=== PATIENT | female | born 1955 | race Caucasian/White ===

== ENCOUNTER 2017-01-21 11:28 | Emergency (ER) | payer OTHER ==
--- NOTE | ~2017-01-21 | EKG ---
PATIENT: ANYI GRACE UNIT #: [id number] Ventricular Rate: 102 BPM Atrial Rate: 102 BPM P-R Interval: 146 ms QRS Duration: 92 ms Q-T Interval: 356 ms QTC Calculation(Bezet): 463 ms P [place]: 55 degrees Calculated R [place]: 15 degrees Calculated T [place]: 47 degrees Diagnosis Line: Sinus tachycardia Diagnosis Line: Nonspecific ST abnormality Diagnosis Line: Otherwise normal ECG Diagnosis Line: No previous ECGs available Diagnosis Line: Confirmed by ZEFERINO GOODWIN MD ([id number]) on 01/27/2017 Diagnosis Line: 11:55:07 AM INTERPRETING MD: CHRISTA ROSALES
--- NOTE | ~2017-01-21 | CR72 ---
[facility] A Service of [facility] RADIOLOGY TEXT RESULTS PATIENT: ANYI GRACE LOCATION: SED : 55 UNIT #: [id number] AGE: [address]: Nate Alvarado DO SEX: F ORDER DR: [id number] [place] [id number] E MR#: [id number] Acc #: [id number] NAME: ANYI GRACE : 1955 SEX: F STUDY DATE/TIME: 01/21/2017 11:37 UNIT: SED ROOM: STUDY DESCRIPTION: CR Chest Single View Portable Attending Physician: Nate Alvarado Ordering Physician: Nate Alvarado Primary Care Physician: Bharati Camacho M.D. MEDICAL IMAGING REPORT This report is preliminary unless electronic signature is present. EXAM Portable chest, 01/21. INDICATION Chest pain that started at 7 o'clock this morning. History of hypertension. FINDINGS A single AP portable view of the chest shows both lungs to be clear. The heart is normal in size. The mediastinal contour is normal. No significant bone abnormalities are seen. IMPRESSION Normal portable chest. Dictated by... Sukhi López Jr., M.D. THIS IS AN ELECTRONICALLY VERIFIED REPORT Sukhi López Jr., M.D. at 01/21/2017 4:47 PM JOHN/chuck TD: 01/21/2017 12:41 JOB #: [id number] MEDICAL IMAGING REPORT Page 1 of 1
[~2017-01-21 11:28] MED LIST: CALCIUM 500 + D1 TAB PO; EQUATE ARTHRITIS PO; FISH OIL 1,0001 CAP PO; FLEXERIL PO; MEDROL PO; NO MEDICATIONS; VICODIN 5/500 T1 TAB PO
[2017-01-21 11:45] LABS: BASOPHIL% 0.5 % (0-2.5); EOSINOPHIL# 0.1 X10e3 (0-0.7); EOSINOPHIL% 2.2 % (0.0-7.0); HEMATOCRIT 40.5 % (35.0-45.0); HEMOGLOBIN 14.1 gm/dL (12.0-16.0); LYMPHOCYTE# 1.8 X10e3 (1.0-3.5); LYMPHOCYTE% 31.1 % (17.0-45.0); MEAN CELL VOLUME 87.1 FL (83-96); MEAN CORPUSCULAR HEMOGLOBIN 30.3 PG (28-34); MEAN CORPUSCULAR HGB CONC 34.8 g/dL (30-36); MEAN PLATELET VOLUME 6.8 FL (6.5-11.5); MONOCYTE# 0.4 X10e3 (0-1.0); NEUTROPHIL# 3.3 X10e3 (1.5-7.1); NEUTROPHIL% 58.2 % (40-75); PLATELET COUNT 319 X10e3 (140-420); RED BLOOD COUNT 4.65 X10e (3.90-5.30); RED CELL DISTRIBUTION WIDTH 12.9 % (11.0-15.5); WHITE BLOOD COUNT 5.6 X10e3 (4.0-10.5)
[2017-01-21 11:48] LABS: DIFF IND NO
[2017-01-21 12:03] LABS: PROTHROMBIN TIME (PATIENT) 11.2 SECONDS (9.5-12.4)
[2017-01-21 12:04] LABS: POC - CKMB <1.0 ng/mL (0.0-7.9); POC - TROPONIN <0.05 ng/mL (<=0.05)
[2017-01-21 12:09] LABS: ALBUMIN SERUM 4.5 g/dL (3.5-5.0); ALKALINE PHOSPHATASE 51 U/L (32-92); ALT (SGPT) 29 U/L (10-40); AST (SGOT) 23 U/L (10-42); BILIRUBIN,TOTAL 0.4 mg/dL (0.2-2.0); BLOOD UREA NITROGEN 20 mg/dL (9-23); BUN/CREATININE RATIO 22.22; CALCIUM SERUM 9.5 mg/dL (8.4-10.2); CARBON DIOXIDE 29 mmol/L (22-31); CHLORIDE 103 mmol/L (100-111); CREATININE SERUM 0.9 mg/dL (0.6-1.4); GLOM FILT RATE Estimated 69.1 mL/min (>60); GLUCOSE FASTING 104 mg/dL (70-110); POTASSIUM 3.6 mmol/L (3.5-5.1); PROTEIN TOTAL SERUM 7.4 g/dL (6.0-8.3); SODIUM 140 mmol/L (135-145)
[2017-01-21 12:11] LABS: PARTIAL THROMBOPLASTIN TIME 31.8 SECONDS (25.6-38.1)
[2017-01-21 12:14] LABS: BILIRUBIN, DIRECT <0.1 mg/dL (0.0-0.2); BILIRUBIN,INDIRECT 0.3 mg/dL (0.0-0.9)
[2017-01-21 13:48] LABS: POC - TROPONIN <0.05 ng/mL (<=0.05)
== END 2017-01-21 14:20 | disposition home or self-care (01) ==
LOC: SED 11:28
PROVIDERS: Emergency Medicine
DX: R07.89 Other chest pain (principal); I10 Essential (primary) hypertension; Z90.710 Acquired absence of both cervix and uterus; Z90.49 Acquired absence of other specified parts of digestive tract
CPT/HCPCS: 36415; 71010; 80048; 80076; 82553; 84484; 85025; 85379; 85610; 85730; 93005; 96372; 99284

== ENCOUNTER → 2017-03-25 | Outpatient (CLI) | payer OTHER ==
--- NOTE | ~2017-03-25 | MY29 ---
[facility] A Service of [facility] RADIOLOGY TEXT RESULTS PATIENT: ANYI GRACE LOCATION: [facility] : 55 UNIT #: [id number] AGE: [address]: Selena Lira APRN SEX: F ORDER DR: [id number] [facility] [address] [place], [place] [address] [id number] O MR#: [id number] Acc #: [id number] NAME: ANYI GRACE : 1955 SEX: F STUDY DATE/TIME: 03/25/2017 16:38 UNIT: [facility] ROOM: STUDY DESCRIPTION: [facility] SCREENING W/ CAD BILAT Attending Physician: Selena Lira A.P.R.N. Referring Physician: Selena Lira A.P.R.N. Ordering Physician: Selena Lira A.P.R.N. Primary Care Physician: Selena Lira A.P.R.N. MEDICAL IMAGING REPORT This report is preliminary unless electronic signature is present EXAM Digital screening mammogram, 03/25/2017, [facility]. HISTORY 61-year-old woman; no risk elevation. Annual screening. COMPARISON None available. Stated prior mammograms cannot be located. FINDINGS Digital imaging of each breast was completed, utilizing screening protocol. Review includes FDA-approved CAD device. Breast parenchyma is partially fatty replaced in each breast, although residual parenchymal opacities remain in the left breast, subareolar location, and upper outer quadrant. There is mild subareolar duct prominence on the left, and the nipple appears to be inverted or retracted. On the craniocaudal view, there is suggestion of subtle stellate distortion, deep central aspect. This is less apparent on an exaggerated craniocaudal view and is not identified on the MLO view. However, in the absence of a prior images, additional left breast imaging is indicated. This would include a true lateral projection with high-resolution spot compression views and a targeted ultrasound, if indicated at the time. Right breast is negative. IMPRESSION Incomplete mammographic evaluation. Additional left breast imaging is recommended. See complete report with recommendations. Patients over the age of 40 are entered into a reminder system with target due date for the next mammogram. A result letter will also be sent to the patient. [facility] A Service of [facility] RADIOLOGY TEXT RESULTS PATIENT: ANYI GRACE LOCATION: [facility] : 55 UNIT #: [id number] AGE: [address]: Selena Lira APRN SEX: F ORDER DR: BIRADS: 0 Incomplete; need additional imaging evaluation and/or prior mammograms for comparison. Dictated by... Amos Servin M.D. THIS IS AN ELECTRONICALLY VERIFIED REPORT Amos Servin M.D. at 03/29/2017 3:31 PM Luli TD: 03/29/2017 14:48 JOB #: [id number] MEDICAL IMAGING REPORT Page 1 of 1 COPY
== END | disposition home or self-care (01) ==
LOC: CWCC 16:26
DX: Z12.31 Encounter for screening mammogram for malignant neoplasm of breast (principal); R92.8 Other abnormal and inconclusive findings on diagnostic imaging of breast
CPT/HCPCS: G0202

== ENCOUNTER → 2017-04-15 | Outpatient (CLI) | payer OTHER ==
--- NOTE | ~2017-04-15 | MY24 ---
[facility] A Service of [facility] & [facility] RADIOLOGY TEXT RESULTS PATIENT: ANYI GRACE LOCATION: [facility] : 55 UNIT #: [id number] AGE: [address]: Selena Lira APRN SEX: F ORDER DR: [id number] [facility] [address] [place], [place] [address] [id number] O MR#: [id number] Acc #: [id number] NAME: ANYI GRACE : 1955 SEX: F STUDY DATE/TIME: 04/15/2017 14:59 UNIT: [facility] ROOM: STUDY DESCRIPTION: [facility] Attending Physician: Selena Lira A.P.R.N. Referring Physician: Selena Lira A.P.R.N. Ordering Physician: Selena Lira A.P.R.N. Primary Care Physician: Selena Lira A.P.R.N. MEDICAL IMAGING REPORT This report is preliminary unless electronic signature is present EXAM Unilateral left digital diagnostic mammogram with CAD device, 04/15/2017. HISTORY Screening mammogram obtained 03/25/2017 demonstrated architectural distortion in the central left breast seen only in the craniocaudal projection. Spot compression was recommended for further evaluation. FINDINGS Digital mediolateral view of the left breast was obtained as well as spot compression of the central left breast in the craniocaudal projection demonstrating effacement of the density characteristic of normal overlapping fibroglandular tissue. No underlying mass or suspicious cluster of microcalcifications was seen. The films have been reviewed by an FDA-approved CAD device. IMPRESSION No mammographic evidence of malignancy. Annual mammogram is recommended. Patients over the age of 40 are entered into a reminder system with target due date for the next mammogram. A result letter will also be sent to the patient. BIRADS: 1 Negative. Dictated by... Amadeo Kennedy M.D. THIS IS AN ELECTRONICALLY VERIFIED REPORT Amadeo Kennedy M.D. at 04/15/2017 5:48 PM KRT/jt [facility] A Service of [facility] RADIOLOGY TEXT RESULTS PATIENT: ANYI GRACE LOCATION: [facility] : 55 UNIT #: [id number] AGE: [address]: Selena Lira APRN SEX: F ORDER DR: TD: 04/15/2017 17:44 JOB #: [id number] MEDICAL IMAGING REPORT Page 1 of 1 COPY
== END | disposition home or self-care (01) ==
LOC: CMAM 14:25
DX: R92.8 Other abnormal and inconclusive findings on diagnostic imaging of breast (principal)
CPT/HCPCS: G0206